=== PATIENT | male | born 1960 | race Caucasian/White ===

== ENCOUNTER 2020-08-20 09:44 | Emergency (ER) | payer OTHER, BC ==
[~2020-08-20] VITALS: Ht 193 cm; Wt 125.0 kg
[~2020-08-20 09:44] MED LIST: DIAZ5TAB PO; MECL-75 PO; ONDA4TAB10 PO; PRED20TA PO
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
[2020-08-20 10:26] VITALS: BP 135/83
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
[2020-08-20] MEDS ORDERED: HYDR-2759 PO (10:50)
[2020-08-20] MEDS ORDERED: NAPROXEN 500 MG TABLET PO ONE (11:00)
--- NOTE | 2020-08-20 12:18 | EKG ---
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
== END 2020-08-20 11:01 | disposition home or self-care (01) ==
LOC: ER 09:44
DX: R07.89 Other chest pain (principal); G89.11 Acute pain due to trauma; M25.551 Pain in right hip; M79.642 Pain in left hand; M10.9 Gout, unspecified; V49.49XA Driver injured in collision with other motor vehicles in traffic accident, initial encounter; Y93.89 Activity, other specified; Y92.488 Other paved roadways as the place of occurrence of the external cause; Y99.8 Other external cause status
CPT/HCPCS: 71111; 93005; 99283